=== PATIENT | female | born 1960 | race Caucasian/White ===

== ENCOUNTER 2020-09-11 12:09 | Emergency (ER) | payer BC ==
[2020-09-11 12:37] VITALS: BP 127/81; PULSE 88; TEMP 98; BMI 24.2
== END 2020-09-11 14:15 | disposition home or self-care (01) ==
LOC: JERFT 12:09
DX: I80.9 Phlebitis and thrombophlebitis of unspecified site (principal)
CPT/HCPCS: 99283-25; 99284-25

== ENCOUNTER 2020-09-14 07:50 | Emergency (ER) | payer BC ==
[2020-09-14 08:03] VITALS: BP 118/57; PULSE 84; TEMP 97.8; BMI 23.3
== END 2020-09-14 10:29 | disposition home or self-care (01) ==
LOC: JER 07:50
DX: I80.01 Phlebitis and thrombophlebitis of superficial vessels of right lower extremity (principal)
CPT/HCPCS: 93971; 99284-25